=== PATIENT | male | born 1965 | race African-American/Black ===

== ENCOUNTER 2016-05-29 16:21 | Emergency (ER) | payer MEDICAID ==
[~2016-05-29] VITALS: Ht 182.9 cm; Wt 78.9 kg
[~2016-05-29 16:21] MED LIST: ASPI81TA27; LORA-622; LORATIDINE; SILV1CRE82
[2016-05-29 16:27] VITALS: BP 118/73
== END 2016-05-29 18:29 | disposition home or self-care (01) ==
LOC: ER 16:29
DX: H61.21 Impacted cerumen, right ear (principal); F12.10 Cannabis abuse, uncomplicated; Z88.6 Allergy status to analgesic agent; Z88.2 Allergy status to sulfonamides; Z79.899 Other long term (current) drug therapy
CPT/HCPCS: 69209

== ENCOUNTER 2016-09-02 13:49 | Emergency (ER) | payer MEDICAID ==
[~2016-09-02] VITALS: Ht 182.9 cm; Wt 84.4 kg
[2016-09-02 14:02] VITALS: BP 111/55
== END 2016-09-02 14:31 | disposition home or self-care (01) ==
LOC: ER 13:53
DX: J02.9 Acute pharyngitis, unspecified (principal); Z88.6 Allergy status to analgesic agent; Z88.1 Allergy status to other antibiotic agents; F12.10 Cannabis abuse, uncomplicated

== ENCOUNTER 2016-09-09 20:20 | Emergency (ER) | payer MEDICAID ==
[~2016-09-09] VITALS: Ht 182.9 cm; Wt 84.4 kg
[2016-09-09 20:42] VITALS: BP 114/61
[2016-09-09 21:22] LABS: Basophils # (auto) 0 uL; Basophils % (auto) 0.3 % (0.0-2.0); Eosinophils # (auto) 0 uL; Eosinophils % (auto) 0.1 % (0.0-7.0); Hematocrit 36.3 % (41.0-53.0); Hemoglobin 12.4 g/dL (13.5-17.5); Lymphocytes # (auto) 1.1 uL; Lymphocytes % (auto) 7.8 % (10.0-50.0); Mean Corpuscular Hemoglobin 29.1 pg (28.0-32.0); Mean Corpuscular Hgb Conc. 34.1 g/dL (32.0-36.0); Mean Corpuscular Volume 85.4 fL (80.0-100.0); Mean Platelet Volume 8.5 fL (7.4-10.4); Monocytes # (auto) 0.5 uL; Monocytes % (auto) 3.7 % (0.0-12.0); Neutrophils % (auto) 88.1 % (37.0-80.0); Platelet Count (auto) 157 10^3/uL (140-450); Red Cell Distribution Width 14.6 % (11.6-16.0); White Blood Cell 13.7 10^3/uL (4.4-10.8)
[2016-09-09 21:37] LABS: INR 1.05 (0.9-1.15); Partial Thromboplastin Time 22.5 sec (22.64-33.71); Prothrombin Time 11.3 sec (9.37-12.3)
[2016-09-09 21:43] LABS: Albumin 3.9 g/dL (3.4-5.0); BUN/Creatinine Ratio 11.9; Calcium 9.1 mg/dL (8.5-10.1); Potassium 3.7 mmol/L (3.5-5.1)
[2016-09-09 21:46] LABS: Bilirubin, Total 0.5 mg/dL (0.2-1.0); Total Protein 7.5 g/dL (6.4-8.2)
== END 2016-09-10 | disposition left against medical advice (07) ==
LOC: ER 20:23
DX: R05 Cough (principal); Z53.21 Procedure and treatment not carried out due to patient leaving prior to being seen by health care provider
CPT/HCPCS: 36415; 80053; 85025; 85610; 85730

== ENCOUNTER 2016-09-10 16:23 | Emergency (ER) | payer MEDICAID ==
[~2016-09-10] VITALS: Ht 182.9 cm; Wt 85.3 kg
[2016-09-10 16:27] VITALS: BP 108/62
== END 2016-09-10 17:31 | disposition home or self-care (01) ==
LOC: ER 16:32
DX: J02.9 Acute pharyngitis, unspecified (principal); F12.10 Cannabis abuse, uncomplicated; Z88.6 Allergy status to analgesic agent; Z88.1 Allergy status to other antibiotic agents

== ENCOUNTER 2017-06-19 14:09 | Emergency (ER) | payer MEDICAID ==
[~2017-06-19] VITALS: Ht 182.9 cm; Wt 81.6 kg
[2017-06-19 14:58] LABS: Basophils # (auto) 0.1 uL; Basophils % (auto) 0.7 % (0.0-2.0); Eosinophils # (auto) 0 uL; Eosinophils % (auto) 0.4 % (0.0-7.0); Hematocrit 40.5 % (41.0-53.0); Hemoglobin 14.3 g/dL (13.5-17.5); Lymphocytes # (auto) 1.1 uL; Lymphocytes % (auto) 13.9 % (10.0-50.0); Mean Corpuscular Hemoglobin 29.7 pg (28.0-32.0); Mean Corpuscular Hgb Conc. 35.4 g/dL (32.0-36.0); Monocytes # (auto) 0.4 uL; Neutrophils # (auto) 6.1 uL; Nucleated Red Blood Cells % 0.1 %; Platelet Count (auto) 154 10^3/uL (140-450); Red Blood Cells 4.82 10^6/uL (4.5-5.90); White Blood Cell 7.7 10^3/uL (4.4-10.8)
[2017-06-19 15:18] LABS: BUN/Creatinine Ratio 5.1; Bilirubin, Total 0.7 mg/dL (0.2-1.0); Calcium 8.7 mg/dL (8.5-10.1); Potassium 3.9 mmol/L (3.5-5.1); Total Protein 8.3 g/dL (6.4-8.2)
[2017-06-19 15:19] VITALS: BP 116/51
[2017-06-19] MEDS ORDERED: IBUPROFEN 600 MG TAB PO ONE (15:30)
== END 2017-06-19 17:14 | disposition home or self-care (01) ==
LOC: ER 14:11
DX: J20.9 Acute bronchitis, unspecified (principal); R51 Headache
CPT/HCPCS: 36415; 71045; 80053; 85025; 87804

== ENCOUNTER 2017-07-14 14:29 | Emergency (ER) | payer MEDICAID ==
[~2017-07-14] VITALS: Ht 182.9 cm; Wt 81.6 kg
[2017-07-14 14:45] VITALS: BP 109/69
[2017-07-14] MEDS ORDERED: TETRACAINE HCL 0.5% OPTH(EYE) SOLN 4ML LEFTEYE ONE (16:00)
[2017-07-14] MEDS ORDERED: FLUORESCEIN SOD 1 MG TEST STRIP LEFTEYE ONE (16:00)
== END 2017-07-14 17:30 | disposition home or self-care (01) ==
LOC: ER 14:29
DX: H10.12 Acute atopic conjunctivitis, left eye (principal); F12.10 Cannabis abuse, uncomplicated; Z79.82 Long term (current) use of aspirin; Z85.71 Personal history of Hodgkin lymphoma; Z88.2 Allergy status to sulfonamides; Z88.6 Allergy status to analgesic agent

== ENCOUNTER 2017-09-28 16:40 | Emergency (ER) | payer MEDICAID ==
[~2017-09-28] VITALS: Ht 182.9 cm; Wt 79.4 kg
[2017-09-28 17:56] VITALS: BP 101/63
== END 2017-09-28 18:50 | disposition home or self-care (01) ==
LOC: ER 16:40
DX: J06.9 Acute upper respiratory infection, unspecified (principal); R51 Headache; Z88.6 Allergy status to analgesic agent; Z88.2 Allergy status to sulfonamides

== ENCOUNTER 2018-05-20 18:03 | Emergency (ER) | payer MEDICAID ==
[~2018-05-20] VITALS: Ht 182.9 cm; Wt 81.6 kg
[2018-05-20 18:23] VITALS: BP 111/81
[2018-05-20] MEDS ORDERED: methylPREDNISolone SOD SUCC 125 MG/2 ML VL IM ONE (19:00)
[2018-05-20] MEDS ORDERED: cefTRIAXone SOD 1,000 MG VL IM ONE (19:00)
== END 2018-05-20 19:52 | disposition home or self-care (01) ==
LOC: ER 18:03 → MERGE 18:03 → ER 19:52
DX: J06.9 Acute upper respiratory infection, unspecified (principal); Z88.5 Allergy status to narcotic agent; Z88.2 Allergy status to sulfonamides

== ENCOUNTER 2024-04-07 12:05 | Emergency (ER) | payer MEDICAID ==
[~2024-04-07] VITALS: Ht 185.4 cm; Wt 80.3 kg
[~2024-04-07 12:05] MED LIST changes: +ASPI-543; -ASPI81TA27
--- NOTE | 2024-04-07 13:20 | DVH ---
EXAM: XY CHEST TWO VIEWS ROUTINE CLINICAL HISTORY: COUGH COMPARISON: CXR2 on DOS: 10/03/20 TECHNIQUE: Frontal and lateral view of the chest was obtained FINDINGS: Lines and Tubes: None Lungs: No focal consolidation. Pleura: No effusion. No pneumothorax. Cardiomediastinal contours: Unremarkable Pulmonary vasculature: Within normal limits. Bones: No acute osseous abnormality. IMPRESSION: 1. No acute cardiopulmonary disease. HS:Y
--- NOTE | 2024-04-07 13:25 | ED.PDOC ---
Eye-HPI HPI Comments A 58 YEAR OLD MALE PRESENTS TO THE ED WITH COMPLAINT OF SINUS CONGESTION AND PRESSURE. PATIENT STATES HE HAS BEEN EXPERIENCING SINUS CONGESTION, SINUS PRESSURE, SORE THROAT, AND A MILD COUGH FOR THE PAST 4 DAYS. PATIENT DENIES FEVER, CHILLS, SHORTNESS OF BREATH, CHEST PAIN, ABDOMINAL PAIN, NAUSEA, VOMITING, HEADACHE, OR OTHER COMPLAINTS. NO OTHER SYMPTOMS OR MODIFYING FACTORS AT THIS TIME. PATIENT IS ALERT, ORIENTED X 4, AND HAS STEADY GAIT. Chief Complaint: Flu like Time Seen by MD: 12:25 Primary Care Provider: LANA Reviewed Notes: Nurses Notes, Medications, Allergies Allergies: Coded Allergies: Acetaminophen (Unverified Allergy, Unknown, 06/19/17) Codeine (Verified Allergy, Unknown, 05/19/11) Sulfamethoxazole w/Trimethoprim (Verified Allergy, Unknown, 08/30/15) Home Meds Reported Medications Silver Sulfadiazine (Silvadene) 1 % Cre 06/11/12 [Loratidine] No Conflict Check 06/11/12 Aspirin (Aspir-Low) 81 Mg Tab, DAILY 06/11/12 Loratadine (Claritin) 10 Mg Tab, DAILY 06/11/12 Information Source: Patient Mode of Arrival: Ambulatory Timing: Days Duration: Since onset, Days Quality: Pain Lids: Normal Conjunctiva: Normal Cornea: Normal Pupils: Normal EOM: Normal Fundus: Normal Slit lamp exam: Normal Anterior chamber: Normal Mouth: Normal ENT Ear Exam: Normal, Normal, Normal Sinuses: Frontal Oropharynx: Normal Onset: Spontaneous Throat Exposed to: None History of: None Last Tetanus: Unknown Modifying factors: Nothing Associated signs and symptoms: Nasal Symptoms, Sore Throat, Ear Pain Past Medical History PAST MEDICAL HISTORY: Denies Surgical History: Denies all surgeries Family History Family History: Reviewed,noncontributory to illness Social History Smoker: Non-Smoker Alcohol: Occasionally Drugs: Marijuana Lives In: Home Constitutional: denies: chills, diaphoresis, fatigue, fever, malaise, sweats, weakness, others EENTM: reports: nose congestion; denies: blurred vision, double vision, ear bleeding, ear discharge, ear drainage, ear pain, ear ringing, eye pain, eye redness, hearing loss, mouth pain, mouth swelling, nasal discharge, nose bleeding, nose pain, photophobia, tearing, throat pain, throat swelling, voice changes, others Respiratory: reports: cough; denies: hemoptysis, orthopnea, SOB at rest, shortness of breath, SOB with excertion, stridor, wheezing, others Cardiovascular: denies: chest pain, dizzy spells, diaphoresis, Dyspnea on e xertion, edema, irregular heart beat, left arm pain, lightheadedness, palpitations, PND, syncope, others Gastrointestinal: denies: abdomen distended, abdominal pain, blood streaked bowels, constipated, diarrhea, dysphagia, difficulty swallowing, hematemesis, melena, nausea, poor appetite, poor fluid intake, rectal bleeding, rectal pain, vomiting, others Genitourinary: denies: burning, dysuria, flank pain, frequency, hematuria, incontinence, penile discharge, penile sore, pain, testicle pain, testicle swelling, urgency, others Neurological: denies: dizziness, fainting, headache, left sided numbness, left sided weakness, numbness, paresthesia, pre-existing deficit, right sided numbness, right sided weakness, seizure, speech problems, tingling, tremors, weakness, others Musculoskeletal: denies: back pain, gout, joint pain, joint swelling, muscle pain, muscle stiffness, neck pain, others Integumetry: denies: bruises, change in color, change in hair/nails, dryness, laceration, lesions, lumps, rash, wounds, others Allergic/Immunocompromised: denies: Difficulty Healing, Frequent Infections, Hives, Itching, others Hematologic/Lymphatic: denies: anemia, blood clots, easy bleeding, easy bruising, swollen glands, others Endocrine: denies: excessive hunger, excessive sweating, excessive thirst, excessive urination, flushing, intolerance to cold, intolerance to heat, unexplained weight gain, unexplained weight loss, others Psychiatric: denies: anxiety, bipolar disorder, depression, hopeless, panic disorder, schizophrenia, sleepless, suicidal, others All Other Systems: Reviewed and Negative Physical Exam General Appearance: No Apparent Distress, Normal HEENT: PERRL/EOMI, Pharynx Normal, Sinuses (TENDERNESS MAXILLARY SINUSES WITH POST NASAL DRIP. ), TMs Normal Neck: Full Range of Motion, Non-Tender, Normal, Normal Inspection Respiratory: Chest Non-Tender, Lungs Clear, No Accessory Muscle Use, No Respiratory Distress, Normal Breath Sounds Cardiovascular: No Edema, No JVD, No Murmur, No Gallop, Normal Peripheral Pulses, Regular Rate/Rhythm Breast Exam: Deferred Gastrointestinal: No Organomegaly, Non Tender, No Pulsatile Mass, Normal Bowel Sounds, Soft Genitalia: Deferred Pelvic: Deferred Rectal: Deferred Extremities: No calf tenderness, Normal capillary refill, Normal inspection, Normal range of motion, Non-tender, No pedal edema Musculoskeletal : Apperance: Normal Neurologic: Alert, marketing technology coordinator II-XII nml as Tested, No Motor Deficits, Normal Affect, Normal Mood, No Sensory Deficits Cerebellar Function: Normal Reflexes: Normal Skin: Dry, Normal Color, Warm Peripheral Pulses: 2+ carotid (R), 2+ carotid (L) Lymphatic: No Adenopathy Was a procedure done? Was a procedure done?: No EENT DIFF Eye: N/A Ear: Otitis Media, Pharyngitis, Sinusitis Nose: N/A Mouth: N/A Sore Throat: Pharyngitis, Streptococcal, Viral Pharyngitis, URI X-Ray, Labs, Meds, VS Vital Signs Date Time Temp Pulse Resp B/P (MAP) Pulse Ox O2 Delivery O2 Flow Rate FiO2 04/07/24 12:13 98.3 52 18 144/61 (88) 100 EXAM: XY CHEST TWO VIEWS ROUTINE CLINICAL HISTORY: COUGH COMPARISON: CXR2 on DOS: 10/03/20 TECHNIQUE: Frontal and lateral view of the chest was obtained FINDINGS: Lines and Tubes: None Lungs: No focal consolidation. Pleura: No effusion. No pneumothorax. Cardiomediastinal contours: Unremarkable Pulmonary vasculature: Within normal limits. Bones: No acute osseous abnormality. IMPRESSION: 1. No acute cardiopulmonary disease. HS:Y ATED BY: JUAN HOOKS MD DICTATED DATE/TIME: 04/07/241318 SIGNED BY: JUAN HOOKS MD SIGNED DATE/TIME: 04/07/241318 CC: X-Ray, Labs, Meds, VS Comment EXTERNAL MEDICAL RECORDS REVIEWED: [NONE] INDEPENDENT HISTORIANS: [NONE] SOCIAL DETERMINANTS OF HEALTH: [NONE] LABS ORDERED: NONE REVIEWED AND INTERPRETED RESULTS: NONE IMAGING ORDERED: XR CHEST PROCEDURES PERFORMED: NONE CRITICAL CARE TIME: NONE I HAVE DISCUSSED THE PATIENT WITH THE ATTENDING PHYSICIAN DR. TAFOYA AND HE AGREES WITH THE PATIENT'S PLAN OF CARE AND DISPOSITION. BASED ON HISTORY OF PRESENT ILLNESS, AND PHYSICAL EXAM, PATIENT WILL BE DISCHARGED HOME. DISCUSSED PLAN FOR DISCHARGE HOME WITH RX AUGMENTIN AND PREDNISONE. MEDICATION WARNINGS GIVEN. SHARED DECISION MAKING: DISCUSSED WITH PATIENT THAT THEIR WORKUP WAS NORMAL. PATIENT INSTRUCTED TO FOLLOW UP WITH PRIMARY CARE PROVIDER IN 1-2 DAYS FOR RE- EVALUATION OF SYMPTOMS. PATIENT VERBALIZES UNDERSTANDING TO RETURN TO ED FOR NEW OR WORSENING SYMPTOMS OR IF FOLLOW UP WITH PCP CANNOT BE OBTAINED. PATIENT FEELS COMFORTABLE GOING HOME AT THIS TIME. ALL QUESTIONS ADDRESSED AT TIME OF DISCHARGE. Images Reviewed?: Images reviewed and evaluated by me Time of 1ST Reevaluation: 13:31 Reevaluation 1ST: Improved Patient Education/Counseling: Diagnosis, Treatment, Need For Follow Up Family Education/Counseling: Diagnosis, Treatment, Need For Follow Up Medical Screening: No EMC Exist At This Time Departure 1 Departure Time of Disposition: 13:40 Impression: Primary Impression: Acute sinusitis Qualified Codes: J01.10 - Acute frontal sinusitis, unspecified Disposition: HOME / SELF CARE / HOMELESS Condition: Stable Additional Instructions: FOLLOW-UP WITH PCP IN 1 TO 2 DAYS. TAKE MEDICATIONS PRESCRIBED. RETURN TO ED FOR ANY NEW OR WORSENING SYMPTOMS. e-Prescriptions Promethazine-Dm (Promethazine Dm 6.25-15 mg/5Ml) 1 Ashley Ashley 5 ML PO TID, #160 ML Prov: TAMI FERNANDEZ 04/07/24 Prednisone (Prednisone) 20 Mg Tab 60 MG PO DAILY, #15 TAB Prov: TAMI FERNANDEZ 04/07/24 Levofloxacin Hemihydrate (LEVAQUIN 500 MG) 500 Mg Tab 1 TAB PO DAILY, #10 TAB Prov: TAMI FERNANDEZ 04/07/24 Discharged With: Self Critical Care Note Critical Care Time?: No Stability Stability form required: No I personally scribed for TAMI FERNANDEZ ([email or web address]) on 04/07/24 at 13:25. Electr onically submitted by Ralf Blake ([email or web address]). TAMI FERNANDEZ Apr 07, 2024 13:25
[2024-04-07 13:29] VITALS: BP 144/61; PULSE 52; RESP 18; TEMP 98.3; O2SAT 100
[2024-04-07] MEDS ORDERED: LEVO500T91 PO (13:33)
[2024-04-07] MEDS ORDERED: PRED20TA2 PO (13:33)
[2024-04-07] MEDS ORDERED: PROM1SOL4 PO (13:33)
== END 2024-04-07 13:46 | disposition home or self-care (01) ==
LOC: ER 12:05
DX: J01.00 Acute maxillary sinusitis, unspecified (principal); F15.90 Other stimulant use, unspecified, uncomplicated; Z88.1 Allergy status to other antibiotic agents; Z88.2 Allergy status to sulfonamides; Z88.5 Allergy status to narcotic agent; Z79.82 Long term (current) use of aspirin; Z79.899 Other long term (current) drug therapy
CPT/HCPCS: 71046

== ENCOUNTER 2024-05-09 23:24 | Emergency (ER) | payer MEDICAID ==
[~2024-05-09] VITALS: Ht 182.9 cm; Wt 80.1 kg
[~2024-05-09 23:24] MED LIST changes: +LEVO500T91 PO; +PRED20TA2 PO; +PROM1SOL4 PO
[2024-05-10 00:01] VITALS: BP 134/66; PULSE 55; RESP 16; TEMP 98.9; O2SAT 99
--- NOTE | 2024-05-10 00:37 | DVH ---
CLINICAL INDICATION: right hand pain TECHNIQUE: 3 views of the right hand Comparison: None FINDINGS/IMPRESSION: Nondisplaced acute traumatic fracture of the right 4th metacarpal shaft. Mild soft tissue swelling throughout the hand.
[2024-05-10] MEDS ORDERED: IBUP-1456 PO (01:30)
--- NOTE | 2024-05-10 01:30 | ED.PDOC ---
Musculoskeletal HPI Comments 58-YEAR-OLD MALE PRESENTS TO ER WITH COMPLAINTS OF RIGHT HAND PAIN X 2 HOURS. PATIENT REPORTS HE FELT A POPPING SENSATION AND SUDDEN ONSET OF PAIN/SWELLING TO REGION OF RIGHT 4TH METACARPAL 2 HOURS PRIOR TO ARRIVAL TO ER WHILE HE WAS PLAYING BASKETBALL. HE RATES HIS CURRENT PAIN A 7/10 TO REGION OF RIGHT 4TH METACARPAL WITHOUT RADIATION. DENIES USE OF MEDICATIONS FOR CURRENT SYMPTOMS. DENIES NUMBNESS/TINGLING, RIGHT WRIST PAIN OR ANY FURTHER SYMPTOMS/COMPLAINTS Chief Complaint: Upper Extremity Time Seen by MD: 00:14 Primary Care Provider: LANA Reviewed Notes: Nurses Notes, Medications, Allergies Allergies: Coded Allergies: Acetaminophen (Unverified Allergy, Unknown, 06/19/17) Codeine (Verified Allergy, Unknown, 05/19/11) Sulfamethoxazole w/Trimethoprim (Verified Allergy, Unknown, 08/30/15) Home Meds Active Scripts Ibuprofen (Ibuprofen) 800 Mg Tab, 1 TAB PO TID PRN, #30 TAB 0 Refills Prov:CARROLL GOMEZ 05/10/24 Promethazine-Dm (Promethazine Dm 6.25-15 mg/5Ml) 1 Ashley Ashley, 5 ML PO TID, #160 ML Prov:TAMI FERNANDEZ 04/07/24 Prednisone (Prednisone) 20 Mg Tab, 60 MG PO DAILY, #15 TAB Prov:TAMI FERNANDEZ 04/07/24 Levofloxacin Hemihydrate (LEVAQUIN 500 MG) 500 Mg Tab, 1 TAB PO DAILY, #10 TAB Prov:TAMI FERNANDEZ 04/07/24 Reported Medications Silver Sulfadiazine (Silvadene) 1 % Cre 06/11/12 [Loratidine] No Conflict Check 06/11/12 Aspirin (Aspir-Low) 81 Mg Tab, DAILY 06/11/12 Loratadine (Claritin) 10 Mg Tab, DAILY 06/11/12 Information Source: Patient Mode of Arrival: Ambulatory Past Medical History PAST MEDICAL HISTORY: Cancer (NON-HODGKIN'S LYMPHOMA-IN REMISSION SINCE 2021) Surgical History: Denies all surgeries Family History Family History: Unknown Social History Smoker: Non-Smoker Alcohol: Occasionally Drugs: Marijuana Lives In: Home Constitutional: denies: chills, diaphoresis, fatigue, fever, malaise, sweats, weakness, others EENTM: denies: blurred vision, double vision, ear bleeding, ear discharge, ear drainage, ear pain, ear ringing, eye pain, eye redness, hearing loss, mouth pain, mouth swelling, nasal discharge, nose bleeding, nose congestion, nose pain, photophobia, tearing, throat pain, throat swelling, voice changes, others Respiratory: denies: cough, hemoptysis, orthopnea, SOB at rest, shortness of breath, SOB with excertion, stridor, wheezing, others Cardiovascular: denies: chest pain, dizzy spells, diaphoresis, Dyspnea on exertion, edema, irregular heart beat, left arm pain, lightheadedness, palpitations, PND, syncope, others Gastrointestinal: denies: abdomen distended, abdominal pain, blood streaked bowels, constipated, diarrhea, dysphagia, difficulty swallowing, hematemesis, melena, nausea, poor appetite, poor fluid intake, rectal bleeding, rectal pain, vomiting, others Genitourinary: denies: burning, dysuria, flank pain, frequency, hematuria, incontinence, penile discharge, penile sore, pain, testicle pain, testicle swelling, urgency, others Neurological: denies: dizziness, fainting, headache, left sided numbness, left sided weakness, numbness, paresthesia, pre-existing deficit, right sided numbne ss, right sided weakness, seizure, speech problems, tingling, tremors, weakness, others Musculoskeletal: reports: others ( STATED IN HPI) Integumetry: reports: others ( STATED IN HPI) Allergic/Immunocompromised: denies: Difficulty Healing, Frequent Infections, Hives, Itching, others Hematologic/Lymphatic: denies: anemia, blood clots, easy bleeding, easy bruising, swollen glands, others Endocrine: denies: excessive hunger, excessive sweating, excessive thirst, excessive urination, flushing, intolerance to cold, intolerance to heat, unexplained weight gain, unexplained weight loss, others Psychiatric: denies: anxiety, bipolar disorder, depression, hopeless, panic disorder, schizophrenia, sleepless, suicidal, others Physical Exam General Appearance: No Apparent Distress HEENT: PERRL/EOMI Neck: Full Range of Motion, Non-Tender, Normal Respiratory: Chest Non-Tender, Lungs Clear, No Accessory Muscle Use, No Respiratory Distress, Normal Breath Sounds Cardiovascular: No Murmur, No Gallop, Regular Rate/Rhythm Breast Exam: Deferred Gastrointestinal: NOT DONE Genitalia: Deferred Pelvic: Deferred Rectal: Deferred Extremities: Normal capillary refill, Normal range of motion Musculoskeletal : Extremity Location: Hand (TTP/MILD SWELLING NOTED TO REGION OF RIGHT 4TH METACARPAL SHAFT. NO FURTHER SKIN CHANGES NOTED. NO TTP TO RIGHT WRIST NOTED. PULSES INTACT) Neurologic: Alert, No Motor Deficits, Normal Affect, Normal Mood, No Sensory Deficits Cerebellar Function: Normal Reflexes: Normal Skin: Dry, Normal Color, Warm Peripheral Pulses: 2+ Radial (R), 2+ Radial (L), 2+ Brachial (R), 2+ Brachial ( L) Lymphatic: No Adenopathy Was a procedure done? Was a procedure done?: No Sedation Sedation?: No Differential Diagnosis EXT Differential Diagnosis: Dislocation, Laceration, Neurovascular injury X-Ray, Labs, Meds, VS Vital Signs Date Time Temp Pulse Resp B/P (MAP) Pulse Ox O2 Delivery O2 Flow Rate FiO2 05/10/24 00:01 98.9 55 16 134/66 (88) 99 PATIENT: SIMRAN CHILDERS ACCT: [id number] UNIT: [id number] : 1965 LOC: ER ROOM / BED: / AGE / SEX: 58 / M ADM STATUS: REG ER SERVICE ORDERING PHYSICIAN: CARROLL GOMEZ PROCEDURE(s): RHAN - R HAND 3 VIEW XRAY REASON: right hand pain ORDER NUMBER(s): [id number], ACCESSION NUMBER(s): [id number] CLINICAL INDICATION: right hand pain TECHNIQUE: 3 views of the right hand Comparison: None FINDINGS/IMPRESSION: Nondisplaced acute traumatic fracture of the right 4th metacarpal shaft. Mild soft tissue swelling throughout the hand. ATED BY: PARIS BERRY MD DICTATED DATE/TIME: 05/10/2434 SIGNED BY: PARIS BERRY MD SIGNED DATE/TIME: 05/10/2434 CC: RIGHT HAND X-RAY REVIEWED RIGHT BOXER'S SPLINT APPLIED PATIENT NEUROVASCULARLY INTACT AND REPORTED IMPROVEMENT IN SYMPTOMS PRIOR TO DISCHARGE ADVISED ON REST/NO STRENUOUS ACTIVITY, ELEVATION AND ALTERNATE ICE ON/OFF NEEDED FOR PAIN/SWELLING PATIENT PROVIDED COPY OF RIGHT HAND X-RAY IMAGING REPORT ADVISED TO FOLLOW UP WITH PCP AND ORTHOPEDIC HAND SPECIALIST IN 1-2 DAYS PATIENT VERBALIZED UNDERSTANDING AND AGREEABLE WITH CURRENT PLAN OF CARE ADVISED TO RETURN TO ER IMMEDIATELY IF SYMPTOMS WORSEN Images Reviewed?: Images reviewed and evaluated by me Time of 1ST Reevaluation: 23:50 Reevaluation 1ST: N/A Time of 2ND Reevaluation: 01:20 Reevaluation 2ND: Improved Patient Education/Counseling: Diagnosis, Treatment, Prognosis, Need For Follow Up Family Education/Counseling: No Family Present Departure 1 Departure Time of Disposition: 01:22 Impression: Primary Impression: Fracture, metacarpal shaft Qualified Codes: S62.354A - Nondisplaced fracture of shaft of fourth metacarpal bone, right hand, initial encounter for closed fracture Disposition: 01 HOME / SELF CARE / HOMELESS Condition: Stable e-Prescriptions Ibuprofen (Ibuprofen) 800 Mg Tab 1 TAB PO TID PRN, #30 TAB 0 Refills Prov: CARROLL GOMEZ 05/10/24 Discharged With: Friend Critical Care Note Critical Care Time?: No Stability Stability form required: No Heart Score Heart Score: Heart Score Response (Comments) Value History N/A 0 EKG N/A 0 Age N/A 0 Risk Factors N/A 0 Troponin N/A 0 Total 0 CARROLL GOMEZ May 10, 2024 01:30
== END 2024-05-10 01:45 | disposition home or self-care (01) ==
LOC: ER 23:24
DX: S62.354A Nondisplaced fracture of shaft of fourth metacarpal bone, right hand, initial encounter for closed fracture (principal); F12.10 Cannabis abuse, uncomplicated; Z79.52 Long term (current) use of systemic steroids; Z79.82 Long term (current) use of aspirin; Z88.1 Allergy status to other antibiotic agents; Z88.2 Allergy status to sulfonamides; Z88.5 Allergy status to narcotic agent; W21.05XA Struck by basketball, initial encounter; Y93.67 Activity, basketball; Y92.488 Other paved roadways as the place of occurrence of the external cause; Y99.8 Other external cause status
CPT/HCPCS: 29125; 73130

== ENCOUNTER 2025-01-04 17:22 | Emergency (ER) | payer MEDICAID ==
[~2025-01-04] VITALS: Ht 185.4 cm; Wt 82.2 kg
[~2025-01-04 17:22] MED LIST changes: +IBUP-1456 PO
[2025-01-04 17:24] VITALS: BP 124/73; PULSE 53; RESP 18; TEMP 98.2; O2SAT 98
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
== END 2025-01-04 21:00 | disposition home or self-care (01) ==
LOC: ER 17:27
DX: S80.11XA Contusion of right lower leg, initial encounter (principal); F12.90 Cannabis use, unspecified, uncomplicated; F10.90 Alcohol use, unspecified, uncomplicated; Z88.5 Allergy status to narcotic agent; Z88.2 Allergy status to sulfonamides; Z88.1 Allergy status to other antibiotic agents; Z79.82 Long term (current) use of aspirin; Z79.52 Long term (current) use of systemic steroids; Z79.899 Other long term (current) drug therapy; V43.52XA Car driver injured in collision with other type car in traffic accident, initial encounter; Y93.89 Activity, other specified; Y92.488 Other paved roadways as the place of occurrence of the external cause; Y99.8 Other external cause status; Y90.9 Presence of alcohol in blood, level not specified